=== PATIENT | female | born 2000 | race American Indian/Alaskan Native ===

== ENCOUNTER 2019-09-26 04:07 | Emergency (ER) | payer SELFPAY ==
[2019-09-26 07:01] LABS: Bacteria,Urine 1+ /HPF (Negative); Bilirubin,Urine NEG (Negative); Blood,Urine NEG (Negative); Color,Urine Yellow (Yellow); Mucus,Urine FEW /HPF; Protein,Urine <15 mg/dL mg/dL (Negative)
[2019-09-26 07:02] LABS: HCG Qualitative,Urine Negative (Negative)
[2019-09-26] MEDS ORDERED: AZITHROMYCIN 1 GM ORAL PWDR PACKET PO ONE (07:50)
[2019-09-26] MEDS: LIDOCAINE-MPF (1%) 10 MG/1 ML VIAL 5 ML INFILTRATI ONE ×2 (08:00→08:07)
--- NOTE | 2019-09-26 08:05 | Emergency Department Report ---
ED Female HPI - General Chief complaint: Abdominal Pain Stated complaint: PELVIC PAIN Source: patient Mode of arrival: Ambulatory Limitations: No Limitations - History of Present Illness Initial comments: 19 yo female c/o abnormal vaginal discharge .She denies abd pain nausea and vomiting. No fever or chills. Sexually active with one partner. MD Complaint: vaginal discharge -: Gradual Radiation: non-radiating Severity scale (0 -10): 0 Improves with: none Worsens with: none Are you Now?: No - Related Data Sexually active: Yes Previous Rx's Medication Instructions Recorded Last Taken Type cephALEXin [Keflex] 500 mg PO Q12HR 7 Days #14 cap 09/26/19 Unknown Rx Allergies Allergy/AdvReac Type Severity Reaction Status Date / Time No Known Allergies Allergy Unverified 09/26/19 04:18 ED Review of Systems ROS: Stated complaint: PELVIC PAIN Other details as noted in HPI Comment: All other systems reviewed and negative Genitourinary: discharge ED Past Medical Hx - Past Medical History Previous Medical History?: No - Surgical History Past Surgical History?: No - Social History Smoking Status: Never Smoker Substance Use Type: None - Medications Home Medications: Home Medications Medication Instructions Recorded Confirmed Last Taken Type cephALEXin [Keflex] 500 mg PO Q12HR 7 Days #14 cap 09/26/19 Unknown Rx ED Physical Exam - General Limitations: No Limitations General appearance: alert, in no apparent distress - Head Head exam: Present: atraumatic - Eye Eye exam: Present: normal appearance - ENT ENT exam: Present: normal exam - Respiratory Respiratory exam: Present: normal lung sounds bilaterally - Cardiovascular Cardiovascular Exam: Present: regular rate, normal rhythm - GI/Abdominal GI/Abdominal exam: Present: soft. Absent: distended, tenderness - Rectal Rectal exam: Absent: deferred - External exam: Present: normal external exam. Absent: erythema, lesions, lacerations, bleeding Speculum exam: Present: vaginal discharge, cervical discharge. Absent: erythema, vaginal bleeding, tissue, laceration Bi-manual exam: Present: normal bi-manual exam. Absent: cervical motion tendernes, adnexal tenderness - Extremities Exam Extremities exam: Present: normal inspection - Back Exam Back exam: Absent: CVA tenderness (R), CVA tenderness (L) - Neurological Exam Neurological exam: Present: alert, oriented X3 - Psychiatric Psychiatric exam: Present: normal affect - Skin Skin exam: Present: warm, dry, intact, normal color ED Course Vital Signs 09/26/19 09/26/19 04:16 08:34 Temperature 99.2 F 98.2 F Pulse Rate 111 H 80 Respiratory 18 17 Rate Blood Pressure 114/59 Blood Pressure 105/71 [Right] O2 Sat by Pulse 91 99 Oximetry ED Medical Decision Making - Medical Decision Making This is a 19-year-old female. She presents to the emergency room with complaint of abnormal vaginal discharge 3 days. She denies abdominal pain. Denies nausea vomiting fever chills. She is sexually active with one partner.On exam copious yellow discharge. Urine + for UTI. G/C and wet prep sent to labs. Pt refused rocephin infection states she prefers to wait for results. - Differential Diagnosis STI Critical Care Time: No Critical care attestation.: If time is entered above; I have spent that time in minutes in the direct care of this critically ill patient, excluding procedure time. ED Disposition Clinical Impression: UTI (urinary tract infection) Qualifiers: Urinary tract infection type: acute cystitis Hematuria presence: without hematuria Qualified Code(s): N30.00 - Acute cystitis without hematuria Disposition: - TO HOME OR SELFCARE Is pt being admited?: No Does the pt Need Aspirin: No Condition: Stable Instructions: Urinary Tract Infection in Women (ED) Additional Instructions: Follow up with your primary care doctor in 2-3 days . Call medical records for your lab results. Drink plenty fluids . Prescriptions: cephALEXin [Keflex] 500 mg PO Q12HR 7 Days #14 cap Referrals: PRIMARY CARE [Primary Care Provider] - 3-5 Days Time of Disposition: 08:14
[2019-09-26 08:35] VITALS: BP 105/71
== END 2019-09-26 08:36 | disposition home or self-care (01) ==
LOC: ED 04:07
DX: N39.0 Urinary tract infection, site not specified (principal)
CPT/HCPCS: 81001; 81025; 87210; 87591; J0696

== ENCOUNTER 2022-02-20 04:45 | Emergency (ER) | payer SELFPAY ==
[2022-02-20 04:55] VITALS: BP 94/59
== END 2022-02-20 12:54 | disposition left against medical advice (07) ==
LOC: ED 04:45
DX: Z00.00 Encounter for general adult medical examination without abnormal findings (principal); Z53.21 Procedure and treatment not carried out due to patient leaving prior to being seen by health care provider

== ENCOUNTER 2022-04-13 03:13 | Emergency (ER) | payer SELFPAY ==
[2022-04-13 03:30] VITALS: BP 100/52
[2022-04-13] MEDS ORDERED: diphenhydrAMINE 25 MG CAP PO ONE (03:33)
[2022-04-13] MEDS ORDERED: IBUPROFEN 800 MG TAB PO ONE (03:34)
== END 2022-04-13 09:00 | disposition left against medical advice (07) ==
LOC: ED 03:13
DX: H57.10 Ocular pain, unspecified eye (principal); Z53.21 Procedure and treatment not carried out due to patient leaving prior to being seen by health care provider